=== PATIENT | female | born 1965 | race Hispanic/Latino ===

== ENCOUNTER → 2018-10-17 | Outpatient (CLI) | payer OTHER ==
--- NOTE | 2018-10-17 11:47 | Diagnostic Imaging Report ---
EXAMINATION: CHEST 2 VIEWS INDICATION: Shortness of breath COMPARISON: None FINDINGS: TUBES and LINES: None. LUNGS: Lungs are well inflated. No focal consolidation or pulmonary edema. PLEURA: No pleural effusion or pneumothorax. HEART AND MEDIASTINUM: The cardiomediastinal silhouette is unremarkable. BONES AND SOFT TISSUES: No acute osseous lesion. Soft tissues are unremarkable. UPPER ABDOMEN: No free air under the diaphragm. IMPRESSION: Clear lungs. Signed by: Shereen Fleming MD on 10/17/2018 11:44 AM
== END ==
LOC: RAD 10:13
PROVIDERS: ATTEND Internal Medicine
DX: R06.02 Shortness of breath (principal)
CPT/HCPCS: 71046

== ENCOUNTER → 2018-12-12 | Outpatient (CLI) | payer OTHER ==
--- NOTE | 2018-12-19 09:28 | Diagnostic Imaging Report ---
#[id number] - [id number] #BILATERAL DIGITAL SCREENING MAMMOGRAM WITH CAD: 12/12/2018 CLINICAL: Routine screening. No prior exams were available for comparison. Current study contains 4 films. The tissue of both breasts is heterogeneously dense. This may lower the sensitivity of mammography. Current study was also evaluated with a Computer Aided Detection (CAD) system. No significant masses, calcifications, or other findings are seen in either breast. IMPRESSION: NEGATIVE There is no mammographic evidence of malignancy. A 1 year screening mammogram is recommended. The patient will be notified by letter of the results. DUSTY ANTHONY M.D. ct/penrad:12/15/2018 14:16:02 Metals Analyst: Kelsy SPANGLER(R)(M), [facility] letter sent: Normal Exam Mammogram BI-RADS: 1 Negative
== END ==
LOC: MAMMO 12:30
PROVIDERS: ATTEND Internal Medicine
DX: Z12.31 Encounter for screening mammogram for malignant neoplasm of breast (principal)
CPT/HCPCS: 77067

== ENCOUNTER → 2019-12-10 | Outpatient (CLI) | payer BC | LOC: MAMMO 10:26 | PROVIDERS: ATTEND Internal Medicine | DX: Z12.31 Encounter for screening mammogram for malignant neoplasm of breast (principal) | CPT/HCPCS: 77067 ==

== ENCOUNTER → 2019-12-21 | Day surgery (SDC) | payer BC, OTHER ==
[~2019-12-21] MED LIST: KETAMINE HCL INJ 50 MG/ML 10 ML VIAL ONE; LIDOCAINE HCL 2% LOCAL INJ 5 ML SDV VIAL INJ ONE; MIDAZOLAM HCL 2 MG/2 ML VIAL ONE; PROPOFOL IV EMULSION 10 MG/ML 20 ML VIAL ONE
--- NOTE | 2019-12-21 15:04 | Operative Report ---
DATE OF PROCEDURE: 12/21/2019 SURGEON: Ubaldo Lucero MD PROCEDURE: Colonoscopy with polypectomy note. INDICATIONS FOR COLONOSCOPY: Colorectal cancer screening. MEDICATIONS: The patient was done under MAC, please see anesthesiologist's note. PROCEDURE IN DETAIL: With the patient in left lateral decubitus position, a flexible fiberoptic Olympus colonoscope was inserted into the rectum with ease and advanced all the way to the cecum. It was then withdrawn slowly, mucosa overlying the cecum, ascending colon, transverse colon, descending colon, and sigmoid colon appeared to be within normal limits. A minute polyp was hot biopsied from the proximal rectum. The scope was then retroflexed into the distal rectum and small internal hemorrhoids were noted, none of which was actively bleeding. The scope was then straightened out, it was subsequently withdrawn. The patient tolerated the procedure well. IMPRESSION: 1. Rectal polyp, hot biopsied. 2. Internal hemorrhoids, none actively. PLAN: 1. Follow up histology. 2. Initiate high-fiber, low-fat diet. 3. Initiate high-fiber supplement. 4. The patient might benefit from a followup colonoscopy in 5 years. Ubaldo Lucero MD [facility] [place] /[id number] cc: Jenifer Reyes MD
[2019-12-21 15:30] VITALS: BP 128/77
== END | disposition home or self-care (01) ==
LOC: OR 11:00
PROVIDERS: ATTEND Internal Medicine Gastroenterology
DX: Z12.11 Encounter for screening for malignant neoplasm of colon (principal); K62.1 Rectal polyp; K64.8 Other hemorrhoids; Z01.810 Encounter for preprocedural cardiovascular examination; Z01.812 Encounter for preprocedural laboratory examination; Z11.59 Encounter for screening for other viral diseases
CPT/HCPCS: 45384; 81025; 93005; J2001; J2250; J2704; U0002; 45378